=== PATIENT | female | born 1970 | race African-American/Black ===

== ENCOUNTER 2016-08-12 10:34 | Inpatient (IN) | payer MEDICARE, OTHER ==
[2016-08-06 10:37] VITALS: Ht 167.4 cm; Wt 84.4 kg
[2016-08-06 11:44] VITALS: BP_SYST 122; RESP 20; TEMP 99.2
[~2016-08-12] VITALS: Ht 167.4 cm; Wt 84.4 kg
[2016-08-12] VITALS (20 sets, daily range): BP systolic 128–179; RESP 13–20; TEMP 97–98.4
[~2016-08-12 10:34] MED LIST: BACITRACIN 50,000 UNITS INJ IRRIG ONE; BACITRACIN OINT TOPICAL ONE; BUPIVACA/EPI 0.5% 50ML NERVEBLOCK ONE; CEFAZOLIN 2,000 MG in SODIUM CHLORIDE 0.9% 100 ML IV ONE; DILAUDID 1 MG/ML AMP IV PRN; FAMOTIDINE 20 MG INJ IV ONE; FLUTICASONE 0.05% NA BTL NARE EACH SCH; GELATIN SPONGE 12 CM2 TOPICAL ONE; GLYCOPYRROLATE 0.2 MG/ML VIAL IV ONE; HCTZ 25 MG TAB PO SCH; LACT RINGERS 1,000 ML IV SCH; LIDOCAINE 1% BUFFERED 1 ML SYR INTRADERM PRN; MEPERIDINE 25 MG/ML IV PRN; METFORMIN 500 MG TAB PO SCH; METHOCARBAMOL 500 MG TAB PO SCH; METOCLOPRAMIDE 10 MG/2 ML VIAL IV PUSH ONE; MIDAZOLAM 2 MG/2 ML INJ IV ONE; MORPHINE 2 MG/ML SYR IV PRN; MORPHINE 4 MG/ML SYR IV PRN; Meclizine HCl 25 MG TAB PO PRN; NEB-ALBUTEROL 2.5 MG/3 ML INH PRN; ONDANSETRON 4 MG VIAL IV PRN; OXYCODONE 5 MG TAB PO PRN; PANTOPRAZOLE 40 MG TAB PO SCH; PENTOSAN 100 MG CAP PO SCH; PREGABALIN 75 MG CAP PO SCH; SERTRALINE 100 MG TAB PO SCH; THROMBIN 5000 UNIT KIT TOPICAL ONE; VALSARTAN 80 MG TAB PO SCH; [UNRECOGNIZED DRUG - OTHER] PO SCH; amLODIPine 5 MG TAB PO SCH; hydrOXYzine 25 MG TAB PO PRN; lamoTRIgine 100 MG TAB PO SCH
[2016-08-12] MEDS ORDERED: ACETAMINOPHEN 1,000 MG/100 ML IV ONE (10:43)
[2016-08-12] MEDS ORDERED: LIDOCAINE 2% SYR 5 ML IV ONE (10:43)
[2016-08-12] MEDS ORDERED: NEOSTIGMINE 10 MG/10 ML VIAL IV ONE (10:43)
[2016-08-12] MEDS ORDERED: DEXAMETHASONE 4 MG/ML VIAL IV ONE (10:43)
[2016-08-12] MEDS ORDERED: PROPOFOL 50ML PER ML IV ONE (10:43)
[2016-08-12] MEDS ORDERED: ROCURONIUM 50 MG VIAL IV ONE (10:43)
[2016-08-12] MEDS ORDERED: FENTANYL 100 MCG/2 ML AMP IV ONE (10:43)
[2016-08-12] MEDS ORDERED: ONDANSETRON 4 MG VIAL IV PUSH ONE (10:43)
[2016-08-12] MEDS ORDERED: DILAUDID 1 MG/ML AMP IV ONE (10:43)
[2016-08-12] MEDS ORDERED: GLYCOPYRROLATE 0.2 MG/ML VIAL IV ONE (10:43)
[2016-08-12] MEDS ORDERED: Meclizine HCl 25 MG TAB PO PRN (10:45)
[2016-08-12] MEDS ORDERED: [UNRECOGNIZED DRUG - OTHER] PO PRN (10:45)
[2016-08-12] MEDS ORDERED: hydrOXYzine 25 MG TAB PO PRN (10:45)
[2016-08-12] MEDS: CLOTRIMAZOLE 1% CR 15 GM TOPICAL SCH ×2 (10:55→22:12)
[2016-08-12] MEDS: FLUTICASONE 0.05% NA BTL NARE EACH SCH ×2 (10:55→22:09)
[2016-08-12] MEDS: amLODIPine 5 MG TAB PO SCH (10:56)
[2016-08-12] MEDS: METFORMIN 500 MG TAB PO SCH (10:57)
[2016-08-12] MEDS: lamoTRIgine 100 MG TAB PO SCH (10:57)
[2016-08-12] MEDS: SERTRALINE 100 MG TAB PO SCH (10:58)
[2016-08-12] MEDS: PREGABALIN 75 MG CAP PO SCH ×2 (10:58→22:10)
[2016-08-12] MEDS: HCTZ 25 MG TAB PO SCH (10:58)
[2016-08-12] MEDS: PENTOSAN 100 MG CAP PO SCH ×3 (10:58→22:10)
[2016-08-12] MEDS: PANTOPRAZOLE 40 MG TAB PO SCH (10:58)
[2016-08-12] MEDS: VALSARTAN 80 MG TAB PO SCH (10:58)
[2016-08-12] MEDS ORDERED: Flu Vaccine Quadrivalent 60 MCG/0.5 ML IM.VACC ONE (11:10)
[2016-08-12] MEDS: OXYCODONE/APAP 5/325 TAB PO PRN ×3 (12:18→20:26)
[2016-08-12] MEDS: SODIUM CHLORIDE 0.9% 1,000 ML IV SCH (12:19)
[2016-08-12] MEDS: METHOCARBAMOL 500 MG TAB PO SCH ×2 (13:47→22:09)
[2016-08-12] MEDS ORDERED: [UNRECOGNIZED DRUG - REMARK] XX SCH (20:00)
[2016-08-12] MEDS ORDERED: CETIRIZINE 10 MG TAB PO SCH (21:00)
[2016-08-12] MEDS ORDERED: CLOTRIMAZOLE 1% CR 15 GM TOPICAL SCH (21:00)
[2016-08-12] MEDS ORDERED: DOCUSATE SOD 100 MG CAP PO SCH (21:00)
[2016-08-12] MEDS ORDERED: Atorvastatin 40 MG TAB PO SCH (21:00)
[2016-08-12] MEDS ORDERED: ZOLPIDEM 5 MG TAB PO SCH ×2 (21:00)
[2016-08-12] MEDS: CETIRIZINE 10 MG TAB PO SCH (22:10)
[2016-08-12] MEDS: Atorvastatin 40 MG TAB PO SCH (22:10)
[2016-08-12] MEDS: ZOLPIDEM 5 MG TAB PO PRN (22:11)
[2016-08-12] MEDS: DOCUSATE SOD 100 MG CAP PO SCH (22:11)
[2016-08-12] MEDS: MORPHINE 4 MG/ML SYR IV PRN (22:20)
[2016-08-13 03:44] VITALS: BP_SYST 108; TEMP 98.4
[2016-08-13] MEDS: PANTOPRAZOLE 40 MG TAB PO SCH (06:20)
[2016-08-13] MEDS: OXYCODONE/APAP 5/325 TAB PO PRN ×3 (06:21→15:57)
[2016-08-13] MEDS: SODIUM CHLORIDE 0.9% 1,000 ML IV SCH (06:23)
[2016-08-13 07:24] VITALS: BP_SYST 118; RESP 16; TEMP 98.7
[2016-08-13] MEDS: FLUTICASONE 0.05% NA BTL NARE EACH SCH ×2 (08:37→19:38)
[2016-08-13] MEDS: PREGABALIN 75 MG CAP PO SCH ×2 (08:37→19:40)
[2016-08-13] MEDS: CLOTRIMAZOLE 1% CR 15 GM TOPICAL SCH ×2 (08:37→19:39)
[2016-08-13] MEDS: VALSARTAN 80 MG TAB PO SCH (08:38)
[2016-08-13] MEDS: METFORMIN 500 MG TAB PO SCH (08:38)
[2016-08-13] MEDS: amLODIPine 5 MG TAB PO SCH (08:38)
[2016-08-13] MEDS: SERTRALINE 100 MG TAB PO SCH (08:38)
[2016-08-13] MEDS: HCTZ 25 MG TAB PO SCH (08:38)
[2016-08-13] MEDS: PENTOSAN 100 MG CAP PO SCH ×3 (08:38→19:39)
[2016-08-13] MEDS: lamoTRIgine 100 MG TAB PO SCH (08:39)
[2016-08-13] MEDS: METHOCARBAMOL 500 MG TAB PO SCH ×2 (08:39→19:39)
[2016-08-13] MEDS: DOCUSATE SOD 100 MG CAP PO SCH ×2 (08:39→19:40)
[2016-08-13] MEDS: MORPHINE 4 MG/ML SYR IV PRN ×2 (08:47→19:36)
[2016-08-13] MEDS ORDERED: HCTZ PO SCH (09:00)
[2016-08-13] MEDS ORDERED: VALSARTAN PO SCH (09:00)
[2016-08-13 11:14] VITALS: BP_SYST 138; RESP 18; TEMP 98.7
[2016-08-13 15:05] VITALS: BP_SYST 124; RESP 16; TEMP 98.3
[2016-08-13] MEDS: Atorvastatin 40 MG TAB PO SCH (19:39)
[2016-08-13] MEDS: CETIRIZINE 10 MG TAB PO SCH (19:39)
[2016-08-13 20:28] VITALS: BP_SYST 138; RESP 16; TEMP 99.2
[2016-08-13] MEDS: ZOLPIDEM 5 MG TAB PO PRN (22:04)
[2016-08-13 23:45] VITALS: BP_SYST 119; RESP 16; TEMP 99
[2016-08-14 03:55] VITALS: BP_SYST 113; RESP 20; TEMP 99.1
[2016-08-14] MEDS: PANTOPRAZOLE 40 MG TAB PO SCH (06:18)
[2016-08-14] MEDS: OXYCODONE/APAP 5/325 TAB PO PRN (06:20)
[2016-08-14 07:24] VITALS: BP_SYST 123; RESP 18; TEMP 100.1
[2016-08-14] MEDS: CLOTRIMAZOLE 1% CR 15 GM TOPICAL SCH ×2 (08:29→19:41)
[2016-08-14] MEDS: DOCUSATE SOD 100 MG CAP PO SCH ×2 (08:29→19:41)
[2016-08-14] MEDS: VALSARTAN 80 MG TAB PO SCH (08:29)
[2016-08-14] MEDS: FLUTICASONE 0.05% NA BTL NARE EACH SCH ×2 (08:29→19:40)
[2016-08-14] MEDS: METHOCARBAMOL 500 MG TAB PO SCH (08:30)
[2016-08-14] MEDS: PREGABALIN 75 MG CAP PO SCH ×2 (08:30→19:41)
[2016-08-14] MEDS: lamoTRIgine 100 MG TAB PO SCH (08:30)
[2016-08-14] MEDS: HCTZ 25 MG TAB PO SCH (08:30)
[2016-08-14] MEDS: METFORMIN 500 MG TAB PO SCH (08:31)
[2016-08-14] MEDS: amLODIPine 5 MG TAB PO SCH (08:31)
[2016-08-14] MEDS: PENTOSAN 100 MG CAP PO SCH ×3 (08:31→19:41)
[2016-08-14] MEDS: SERTRALINE 100 MG TAB PO SCH (08:31)
[2016-08-14] MEDS ORDERED: OXYCODONE/APAP 7.5/325 TAB PO PRN (10:30)
[2016-08-14] MEDS: OXYCODONE/APAP 7.5/325 TAB PO PRN (10:58)
[2016-08-14 11:00] VITALS: RESP 20
[2016-08-14] MEDS: MORPHINE 4 MG/ML SYR IV PRN ×2 (14:21→22:51)
[2016-08-14 15:05] VITALS: BP_SYST 118; RESP 15; TEMP 99.3
[2016-08-14] MEDS: CYCLOBENZAPRINE 10 MG TAB PO SCH ×2 (16:30→19:41)
[2016-08-14] MEDS: CETIRIZINE 10 MG TAB PO SCH (19:41)
[2016-08-14] MEDS: Atorvastatin 40 MG TAB PO SCH (19:42)
[2016-08-14 20:11] VITALS: BP_SYST 113; RESP 16; TEMP 99.3
[2016-08-14] MEDS: ZOLPIDEM 5 MG TAB PO PRN (21:18)
[2016-08-15] MEDS: PANTOPRAZOLE 40 MG TAB PO SCH (06:25)
[2016-08-15] MEDS: OXYCODONE/APAP 7.5/325 TAB PO PRN ×3 (06:27→16:29)
[2016-08-15] MEDS: lamoTRIgine 100 MG TAB PO SCH (07:43)
[2016-08-15] MEDS: PENTOSAN 100 MG CAP PO SCH ×3 (07:44→21:30)
[2016-08-15] MEDS: PREGABALIN 75 MG CAP PO SCH ×2 (07:44→21:30)
[2016-08-15] MEDS: HCTZ 25 MG TAB PO SCH (07:44)
[2016-08-15] MEDS: VALSARTAN 80 MG TAB PO SCH (07:44)
[2016-08-15] MEDS: CYCLOBENZAPRINE 10 MG TAB PO SCH ×3 (07:45→21:29)
[2016-08-15] MEDS: DOCUSATE SOD 100 MG CAP PO SCH ×2 (07:45→21:29)
[2016-08-15] MEDS: SERTRALINE 100 MG TAB PO SCH (07:45)
[2016-08-15] MEDS: METFORMIN 500 MG TAB PO SCH (07:45)
[2016-08-15] MEDS: amLODIPine 5 MG TAB PO SCH (07:46)
[2016-08-15] MEDS: CLOTRIMAZOLE 1% CR 15 GM TOPICAL SCH ×2 (07:46→21:31)
[2016-08-15] MEDS: FLUTICASONE 0.05% NA BTL NARE EACH SCH ×2 (07:46→21:29)
[2016-08-15 07:51] VITALS: BP_SYST 115; RESP 15; TEMP 97.9
[2016-08-15 11:22] VITALS: BP_SYST 96; RESP 15; TEMP 98.1
[2016-08-15] MEDS ORDERED: BISACODYL 10 MG SUPP RECTAL PRN (15:20)
[2016-08-15] MEDS ORDERED: BISACODYL EC 5 MG TAB PO PRN (15:20)
[2016-08-15 15:39] VITALS: BP_SYST 107; RESP 16; TEMP 97.9
[2016-08-15] MEDS ORDERED: MISSING DOSE XX ONE (16:30)
[2016-08-15 19:31] VITALS: BP_SYST 143
[2016-08-15 19:32] VITALS: RESP 16; TEMP 99.1
[2016-08-15] MEDS: ZOLPIDEM 5 MG TAB PO PRN (21:29)
[2016-08-15] MEDS: CETIRIZINE 10 MG TAB PO SCH (21:29)
[2016-08-15] MEDS: Atorvastatin 40 MG TAB PO SCH (21:30)
[2016-08-15 22:14] VITALS: BP_SYST 126; RESP 16; TEMP 98.7
[2016-08-16 02:02] VITALS: BP_SYST 117; TEMP 98.3
[2016-08-16 02:03] VITALS: RESP 16
[2016-08-16] MEDS: PANTOPRAZOLE 40 MG TAB PO SCH (06:25)
[2016-08-16 07:19] VITALS: BP_SYST 112; RESP 18; TEMP 98.3
[2016-08-16] MEDS: CLOTRIMAZOLE 1% CR 15 GM TOPICAL SCH (09:00)
[2016-08-16] MEDS: OXYCODONE/APAP 7.5/325 TAB PO PRN ×2 (09:23→13:25)
[2016-08-16] MEDS: PENTOSAN 100 MG CAP PO SCH (09:24)
[2016-08-16] MEDS: lamoTRIgine 100 MG TAB PO SCH (09:24)
[2016-08-16] MEDS: DOCUSATE SOD 100 MG CAP PO SCH (09:25)
[2016-08-16] MEDS: METFORMIN 500 MG TAB PO SCH (09:25)
[2016-08-16] MEDS: PREGABALIN 75 MG CAP PO SCH (09:26)
[2016-08-16] MEDS: VALSARTAN 80 MG TAB PO SCH (09:26)
[2016-08-16] MEDS: amLODIPine 5 MG TAB PO SCH (09:27)
[2016-08-16] MEDS: SERTRALINE 100 MG TAB PO SCH (09:28)
[2016-08-16] MEDS: HCTZ 25 MG TAB PO SCH (09:28)
[2016-08-16] MEDS: CYCLOBENZAPRINE 10 MG TAB PO SCH (09:29)
[2016-08-16] MEDS: FLUTICASONE 0.05% NA BTL NARE EACH SCH (09:30)
[2016-08-16 11:57] VITALS: BP_SYST 106; RESP 16; TEMP 97.5
[2016-08-16 13:13] VITALS: BP_SYST 106; RESP 16; TEMP 97.5
== END 2016-08-16 14:10 | disposition home or self-care (01) | DRG 517 ==
LOC: ENRESERVTM → ENRESERVDT → SURG 10:34 → 5THW 10:45 → SURG 08-13 18:34 → 5THW 08-13 19:00 → ENPENDDIS 08-13 19:00
PROVIDERS: ADMIT Neurological Surgery; ATTEND Neurological Surgery
PROC: 01NB0ZZ Release Lumbar Nerve, Open Approach (ICD-10-PCS; principal; 2016-08-12 07:27)
CPT/HCPCS: 36415; 76000; 80048; 82947; 85025; 94799